=== PATIENT | female | born 1955 | race Hispanic/Latino ===

== ENCOUNTER 2022-09-25 20:07 | Emergency (ER) | payer SELFPAY ==
[2022-09-25 21:44] LABS: HEMATOCRIT 30.9 % (37.0-47.0); HEMOGLOBIN 9.6 g/dl (12.0-16.0); IMMATURE GRANULOCYTES 0.3 % (0.0-5.0); MEAN CELL VOLUME 81.3 fL CALC (80.0-100.0); MEAN CORPUSCULAR HGB 25.3 pG CALC (26.0-32.0); MEAN CORPUSCULAR HGB CONC 31.1 g/dL CAL (32.0-36.0); NEUT# 2.17 thou/uL (2.00-7.15); RED BLOOD COUNT 3.8 mill/uL (4.20-5.60); RED CELL DISTRI WIDTH 18.1 % (11.5-15.5)
[2022-09-25 22:01] LABS: ALBUMIN 3.9 g/dL (3.2-5.0); ALKALINE PHOSPHATASE 87 u/l (38-126); ANION GAP 13 (6-22 (CALC)); BILIRUBIN, TOTAL 0.2 mg/dL (0.0-1.4); BUN 21 mg/dL (8-23); BUN/CREATININE RATIO 26 (12-20 (CALC)); CARBON DIOXIDE 25 mmol/l (22-30); CHLORIDE 104 mmol/l (95-108); CREATININE 0.8 mg/dL (0.5-1.0); GFR FOR AFR.AMER. > 60 ML/MIN (>=60 (CALC)); GFR OTHER RACES > 60 ML/MIN (>=60 (CALC)); POTASSIUM 3.6 mmol/l (3.5-5.1); SGOT/AST 30 u/l (9-36); SODIUM 138 mmol/l (137-146); TOTAL PROTEIN 7.3 g/dL (6.3-8.2)
[2022-09-25] MEDS ORDERED: KEFLEX500 MG PO (23:04)
[2022-09-25] MEDS ORDERED: BACTRIM DS1 TAB PO (23:05)
[2022-09-25 23:21] VITALS: BP 166/81
== END 2022-09-25 23:51 | disposition home or self-care (01) | DRG 601 ==
LOC: ED 20:07
PROVIDERS: Emergency Medicine
DX: N61.0 Mastitis without abscess (principal); N63.0 Unspecified lump in unspecified breast; I10 Essential (primary) hypertension; Z85.3 Personal history of malignant neoplasm of breast

== ENCOUNTER 2023-05-16 20:24 | Emergency (ER) | payer SELFPAY ==
[~2023-05-16] VITALS: Ht 162.6 cm; Wt 54.0 kg
[~2023-05-16 20:24] MED LIST: BACTRIM DS1 TAB PO; KEFLEX500 MG PO
[2023-05-16 20:33] VITALS: BP 182/74
[2023-05-16 20:35] VITALS: BP 172/84
[2023-05-16] MEDS ORDERED: METHOTREXATE2.5 MG PO (20:43)
[2023-05-16] MEDS ORDERED: LISINOP/HCTZ1 TAB PO (20:43)
[2023-05-16] MEDS ORDERED: LISINOPRIL5 MG PO (20:44)
[2023-05-16 20:55] LABS: BASO% 0.7 % (0-3); EOS% 0.9 % (0-8); HEMATOCRIT 28.1 % (37.0-47.0); HEMOGLOBIN 8.1 g/dl (12.0-16.0); IMMATURE GRANULOCYTES 3.4 % (0.0-5.0); LYMPH% 9.1 % (15-41); MEAN CORPUSCULAR HGB 21.1 pG CALC (26.0-32.0); MEAN CORPUSCULAR HGB CONC 28.8 g/dL CAL (32.0-36.0); MONO% 8.1 % (2-13); NEUT# 5.75 thou/uL (2.00-7.15); NEUT% 77.8 % (42-76); RED BLOOD COUNT 3.83 mill/uL (4.20-5.60); RED CELL DISTRI WIDTH 19.7 % (11.5-15.5)
[2023-05-16 20:59] LABS: MEAN CELL VOLUME 73.4 fL CALC (80.0-100.0)
[2023-05-16 21:04] VITALS: BP 177/87
[2023-05-16 21:07] LABS: ALBUMIN 3.7 g/dL (3.2-5.0); ALKALINE PHOSPHATASE 106 u/l (38-126); ANION GAP 12 (6-22 (CALC)); BILIRUBIN, TOTAL 0.3 mg/dL (0.02-1.3); BUN 15 mg/dL (8-23); BUN/CREATININE RATIO 17 (12-20 (CALC)); CARBON DIOXIDE 24 mmol/l (22-30); CHLORIDE 98 mmol/l (95-108); CREATININE 0.9 mg/dL (0.5-1.0); GFR FOR AFR.AMER. > 60 ML/MIN (>=60 (CALC)); GFR OTHER RACES > 60 ML/MIN (>=60 (CALC)); SGOT/AST 33 u/l (9-36); SODIUM 130 mmol/l (137-146); TOTAL PROTEIN 6.7 g/dL (6.3-8.2)
[2023-05-16 21:14] LABS: D-DIMER 1.11 mg/L (0.19-0.60)
[2023-05-16 21:18] LABS: ACT PARTIAL THROMBO TIME 24.5 SECONDS (20.0-32.5); PROTHROMBIN TIME 9.7 SECONDS (9.0-12.5)
[2023-05-16 21:30] VITALS: BP 166/90
[2023-05-16] MEDS ORDERED: ELIQUIS5 MG PO (23:16)
[2023-05-16 23:44] VITALS: BP 156/80
== END 2023-05-16 23:50 | disposition home or self-care (01) | DRG 176 ==
LOC: ED 20:24
PROVIDERS: Family Medicine
DX: I26.99 Other pulmonary embolism without acute cor pulmonale (principal); C79.9 Secondary malignant neoplasm of unspecified site; C50.912 Malignant neoplasm of unspecified site of left female breast; I10 Essential (primary) hypertension

== ENCOUNTER 2025-01-08 18:47 | Emergency (ER) | payer SELFPAY ==
[~2025-01-08] VITALS: Ht 162.6 cm; Wt 51.0 kg
[~2025-01-08 18:47] MED LIST changes: +AMOX/K CLAV875 M1 PO; +ELIQUIS5 MG PO; +LISINOP/HCTZ1 TAB PO; +LISINOPRIL5 MG PO; +METHOTREXATE2.5 MG PO
[2025-01-08] MEDS ORDERED: LOSARTAN POTAS100 MG PO (18:58)
[2025-01-08] MEDS ORDERED: HYDROCHLOROT25 MG PO (18:58)
[2025-01-08] MEDS ORDERED: MECLIZINE HCL 25 MG/TAB PO ONE ×2 (19:30→20:30)
[2025-01-08] MEDS ORDERED: MECLIZINE25 M1 PO (20:29)
[2025-01-08 20:42] VITALS: BP 173/98
[2025-01-08 20:44] VITALS: BP 173/98
== END 2025-01-08 20:44 | disposition home or self-care (01) | DRG 149 ==
LOC: ED 18:47
DX: R42 Dizziness and giddiness (principal); I10 Essential (primary) hypertension